=== PATIENT | male | born 1945 | race African-American/Black ===

== ENCOUNTER 2017-11-08 16:47 | Emergency (ER) | payer OTHER, MEDICAID ==
[~2017-11-08 16:47] MED LIST: ASPI81 PO; ATOR40TA PO; CYCL-36 PO; DICL75 PO; ENAL5TAB98 PO; GLYB1TAB51 PO; IBUP800T23 PO; METO50TA PO; NEUR100C PO; PERC5TAB12 PO
[2017-11-08 16:49] VITALS: BP 160/92; PULSE 98; RESP 18; TEMP 98.8; O2SAT 98
--- NOTE | 2017-11-08 17:10 | PD ---
HPI Chief Complaint: GI Complaint Time Seen by Provider: 17:09 Travel History International Travel<30 days: No Contact w/Intl Traveler<30days: No Traveled to known affect area: No History of Present Illness HPI 72-year-old male came to the emergency room with history of nausea and vomiting for past 2-3 days. Patient says he vomits anytime he eats or drinks anything more than 5 minutes. Vomit is clear in color. No history of diarrhea. His last bowel movement was yesterday. Patient has to take laxatives for moving his bowels since he has history of constipation. Today he has not had a bowel movement or pass gas. No previous abdominal surgeries. No known sick contacts. Patient has never had these symptoms in the past that he can recall for which she needed to come to the emergency room. Vital signs are stable. No history of abdominal pain. PFSH Past Medical History Narrative Medical List of his past medical, surgical, social and family history is reviewed from the nursing note Hx Anticoagulant Therapy: Yes Autoimmune Disease: No Blood Disorders: No Anxiety: No Depression: No Cancer: No Cardiovascular Problems: Yes High Cholesterol: Yes Chemotherapy: No Coronary Artery Disease: Yes Diabetes: Yes (type 2) Diminished Hearing: Yes ([place] Endocrine: No Gastrointestinal Disorders: Yes (acid reflux, nausea) Glaucoma: No Genitourinary: No Hepatitis: No Hiatal Hernia: No Hypertension: Yes Immune Disorder: No Kidney Stones: No Musculoskeletal: No Neurologic: No Psychiatric: No Reproductive: No Respiratory: No Radiation Therapy: No Renal Failure: No Sickle Cell Disease: No Thyroid Disease: No Ulcer: Yes Past Surgical History Abdominal Surgery: No AICD: No Cardiac Surgery: Yes (QUAD HEART BYPASS) Coronary Artery Bypass Graft: Yes Ear Surgery: No Endocrine Surgery: No Eye Surgery: No Genitourinary Surgery: Yes (VASECTOMY, CIRCUMCISION) Gynecologic Surgery: No Joint Replacement: No Oral Surgery: No Pacemaker: No Thoracic Surgery: No Other Surgery: Yes Social History Alcohol Use: No Tobacco Use: No Substance Use: No Allergies-Medications (Allergen,Severity, Reaction): Coded Allergies: No Known Allergies (Verified Adverse Reaction, Unknown, 11/08/17) Comments No known drug allergies. Reported Meds & Prescriptions Reported Meds & Active Scripts Active Percocet 5-325 mg (Oxycodone/Acetaminophen) Oxycodone 5/325 Acetaminophen Tab 1 Tab PO Q6H PRN Diclofenac Sodium Dr (Diclofenac Sod) 75 Mg Tab 75 Mg PO BID PRN Percocet 5-325 mg (Oxycodone/Acetaminophen) Oxycodone 5/325 Acetaminophen Tab 1 Tab PO Q6H PRN Ibuprofen 800 Mg Tab 800 Mg PO TID PRN Flexeril (Cyclobenzaprine HCl) 10 Mg Tab 10 Mg PO TID PRN 5 Days Neurontin (Gabapentin) 100 Mg Cap 100 Mg PO TID Reported Flexeril (Cyclobenzaprine HCl) 10 Mg Tab 10 Mg PO TID Atorvastatin (Atorvastatin Calcium) 40 Mg Tab 40 Mg PO HS Aspirin Low Dose (Aspirin) 81 Mg Chew 81 Mg CHEW DAILY Diclofenac Sodium DR (Diclofenac Sodium) 75 Mg Tabdr 75 Mg PO BID Vasotec (Enalapril Maleate) 5 Mg Tab 5 Mg PO DAILY Gabapentin 100 Mg Cap 100 Mg PO TID Glyburide 5 Mg Tab 10 Mg PO BID Take with meals at the same time each day Metoprolol Tartrate 50 Mg Tab 50 Mg PO BID Atorvastatin 40 mg (Atorvastatin Calcium) 40 Mg Tab 40 Mg PO DAILY Diabeta (Glyburide) 5 Mg Tab 10 Mg PO BID Vasotec (Enalapril Maleate) 5 Mg Tab 5 Mg PO DAILY Metoprolol Tartrate 50 mg (Metoprolol Tartrate) 50 Mg Tab 50 Mg PO BID Aspirin 81 Mg Tab 81 Mg PO DAILY Narrative Medication List of his home medications reviewed from the nursing note Review of Systems Except as stated in HPI: all other systems reviewed are Neg Gastrointestinal: Positive: Nausea, Vomiting Physical Exam Narrative GENERAL: Awake, alert, mild distress SKIN: Focused skin assessment warm/dry. HEAD: Atraumatic. Normocephalic. EYES: Pupils equal and round. No scleral icterus. No injection or drainage. ENT: No nasal bleeding or discharge. Mucous membranes pink and moist. NECK: Trachea midline. No JVD. CARDIOVASCULAR: Regular rate and rhythm. No murmur appreciated. RESPIRATORY: No accessory muscle use. Clear to auscultation. Breath sounds equal bilaterally. GASTROINTESTINAL: Abdomen soft, non-tender, nondistended. Hepatic and splenic margins not palpable. MUSCULOSKELETAL: No obvious deformities. No clubbing. No cyanosis. No edema. NEUROLOGICAL: Awake and alert. No obvious cranial nerve deficits. Motor grossly within normal limits. Normal speech. PSYCHIATRIC: Appropriate mood and affect; insight and judgment normal. Data Data Last Documented VS Vital Signs Date Time Temp Pulse Resp B/P (MAP) Pulse Ox O2 Delivery O2 Flow Rate FiO2 11/08/17 19:18 84 18 189/94 (125) 98 Room Air 11/08/17 16:49 98.8 Orders Orders Complete Blood Count With Diff (11/08/17 17:15) Comprehensive Metabolic Panel (11/08/17 17:15) Lipase (11/08/17 17:15) Urinalysis - C+S If Indicated (11/08/17 17:15) Ct Abd/Pel W/O Iv Contrast (11/08/17 17:15) Iv Access Insert/Monitor (11/08/17 17:15) Ecg Monitoring (11/08/17 17:15) Oximetry (11/08/17 17:15) Ondansetron Inj (Zofran Inj) (11/08/17 17:15) Sodium Chlor 0.9% 1000 Ml Inj (Ns 1000 M (11/08/17 17:15) Sodium Chloride 0.9% Flush (Ns Flush) (11/08/17 17:15) Electrocardiogram (11/08/17 ) Potassium Chloride (Kcl) (11/08/17 19:00) Potassium Chlor 20 Meq Premix (Kcl 20 Me (11/08/17 19:00) Metoclopramide Inj (Reglan Inj) (11/08/17 19:00) Ed Discharge Order (11/08/17 19:50) Labs Laboratory Tests Test 11/08/17 17:40 White Blood Count 9.1 TH/MM3 Red Blood Count 4.24 MIL/MM3 Hemoglobin 12.8 GM/DL Hematocrit 37.1 % Mean Corpuscular Volume 87.5 FL Mean Corpuscular Hemoglobin 30.3 PG Mean Corpuscular Hemoglobin Concent 34.6 % Red Cell Distribution Width 13.4 % Platelet Count 234 TH/MM3 Mean Platelet Volume 9.9 FL Neutrophils (%) (Auto) 81.2 % Lymphocytes (%) (Auto) 7.0 % Monocytes (%) (Auto) 10.2 % Eosinophils (%) (Auto) 0.3 % Basophils (%) (Auto) 1.3 % Neutrophils # (Auto) 7.4 TH/MM3 Lymphocytes # (Auto) 0.6 TH/MM3 Monocytes # (Auto) 0.9 TH/MM3 Eosinophils # (Auto) 0.0 TH/MM3 Basophils # (Auto) 0.1 TH/MM3 CBC Comment DIFF FINAL Differential Comment Blood Urea Nitrogen 7 MG/DL Creatinine 0.91 MG/DL Random Glucose 138 MG/DL Total Protein 6.9 GM/DL Albumin 3.3 GM/DL Calcium Level 8.7 MG/DL Alkaline Phosphatase 119 U/L Aspartate Amino Transf (AST/SGOT) 17 U/L Alanine Aminotransferase (ALT/SGPT) 16 U/L Total Bilirubin 1.6 MG/DL Sodium Level 137 MEQ/L Potassium Level 2.9 MEQ/L Chloride Level 99 MEQ/L Carbon Dioxide Level 27.5 MEQ/L Anion Gap 11 MEQ/L Estimat Glomerular Filtration Rate 99 ML/MIN Lipase 273 U/L MDM Medical Decision Making Medical Screen Exam Complete: Yes Emergency Medical Condition: Yes Medical Record Reviewed: Yes Interpretation(s) Twelve-lead EKG was reviewed by me. Normal sinus rhythm, normal axis, U waves noticed most prominently in V3 V4 and V5. Heart rate of 74 bpm. Differential Diagnosis Small bowel obstruction, gastroparesis, viral illness, electrolyte abnormality, dehydration Narrative Course 5:50 PM awaiting for blood test result. Patient has getting IV fluid bolus and IV Zofran. Have ordered a CT scan as well. 6:51 PM blood test result is suggestive of hypokalemia. I have ordered p.o. and IV replacement. CT scan does not show any obstruction or any acute abdomen. There is incidental finding of gallstones. Without any severe abdominal pain I would not entertain this as the reason of his vomiting. Patient could be having gastroparesis. Upon reassessment patient says his nausea feels little better. I have ordered Reglan and patient once symptom- free could be discharged home. Procedures EKG Prior to Arrival: No Diagnosis Primary Impression: Gastroparesis Additional Impressions: Hypokalemia Nausea & vomiting Qualified Codes: R11.2 - Nausea with vomiting, unspecified Referrals: Primary Care Physician Additional Instructions: Take the medication as per the prescription direction. Return to the ER if condition worsens or any other new concerns. Otherwise follow-up with your primary care. Med/Other Pt SpecificInfo: Prescription(s) given Scripts Metoclopramide (Reglan) 5 Mg Tab 5 MG PO TIDAC, #15 TAB 0 Refills Prov: Pino Lombardi MD 11/08/17 Disposition: 01 DISCHARGE HOME Condition: Stable Pino Lombardi MD November 08, 2017 17:10
[2017-11-08] MEDS ORDERED: ONDANSETRON HCL 4 MG/2 ML VIAL IVP ONE (17:15)
[2017-11-08] MEDS ORDERED: SODIUM CHLORIDE 0.9% FLUSH 10 ML FLUSH IV FLUSH PRN (17:15)
[2017-11-08] MEDS ORDERED: ATOR40TA16 PO (17:15)
[2017-11-08] MEDS ORDERED: GLYB5TAB3 PO (17:15)
[2017-11-08] MEDS ORDERED: METO50TA PO (17:15)
[2017-11-08] MEDS ORDERED: SODIUM CHLOR 0.9% 1000 ML INJ 1,000 ML IV SCH (17:15)
[2017-11-08] MEDS ORDERED: ENAL5TAB98 PO (17:15)
[2017-11-08] MEDS ORDERED: DICL75TA PO (17:15)
[2017-11-08] MEDS ORDERED: CYCL10TA PO (17:15)
[2017-11-08] MEDS ORDERED: GABA100C4 PO (17:15)
[2017-11-08] MEDS ORDERED: ASPI81CH6 CHEW (17:15)
[2017-11-08 17:54] LABS: AUTOMATED NEUTROPHIL # 7.4 TH/MM3 (1.8-7.7); BASOPHIL # 0.1 TH/MM3 (0-0.2); BASOPHIL % 1.3 % (0.0-2.0); EOSINOPHIL % 0.3 % (0.0-4.0); HEMATOCRIT 37.1 % (39.0-51.0); HEMOGLOBIN 12.8 GM/DL (13.0-17.0); LYMPHOCYTE # 0.6 TH/MM3 (1.0-4.8); MEAN CELL VOLUME 87.5 FL (80.0-100.0); MEAN CORPUSCULAR HEMOGLOBIN 30.3 PG (27.0-34.0); MEAN CORPUSCULAR HGB CONC 34.6 % (32.0-36.0); MEAN PLATELET VOLUME 9.9 FL (7.0-11.0); MONO % 10.2 % (0.0-8.0); MONOCYTE # 0.9 TH/MM3 (0-0.9); NEUT % 81.2 % (16.0-70.0); PLATELET COUNT 234 TH/MM3 (150-450); RED BLOOD COUNT 4.24 MIL/MM3 (4.50-5.90); RED CELL DISTRIBUTION WIDTH 13.4 % (11.6-17.2); WHITE BLOOD COUNT 9.1 TH/MM3 (4.0-11.0)
[2017-11-08 18:22] LABS: ALBUMIN 3.3 GM/DL (3.4-5.0); ALKALINE PHOSPHATASE 119 U/L (45-117); ALT (GPT) 16 U/L (12-78); AST (GOT) 17 U/L (15-37); BICARBONATE 27.5 MEQ/L (21.0-32.0); BLOOD UREA NITROGEN 7 MG/DL (7-18); CALCIUM 8.7 MG/DL (8.5-10.1); CHLORIDE 99 MEQ/L (98-107); CREATININE 0.91 MG/DL (0.60-1.30); GLOMERULAR FILTRATION RATE 99 ML/MIN (>89); GLUCOSE,RANDOM 138 MG/DL (74-106); SODIUM (NA) 137 MEQ/L (136-145); TOTAL BILIRUBIN ADULT 1.6 MG/DL (0.2-1.0); TOTAL PROTEIN 6.9 GM/DL (6.4-8.2)
--- NOTE | 2017-11-08 18:38 | RADRPT ---
EXAM DATE/TIME: 11/08/2017 18:07 [facility] COMPARISON: No previous studies available for comparison. INDICATIONS : Patient complains of nausea X 3 days. ORAL CONTRAST: No oral contrast ingested. RADIATION DOSE: 6.91 CTDIvol (mGy) MEDICAL HISTORY : Cardiovascular disease. SURGICAL HISTORY : CABG ENCOUNTER: Initial ACUITY: 3 days PAIN SCALE: 3/10 LOCATION: abdomen TECHNIQUE: Volumetric scanning of the abdomen and pelvis was performed. Using automated exposure control and ad justment of the mA and/or kV according to patient size, radiation dose was kept as low as reasonably achievable to obtain optimal diagnostic quality images. DICOM format image data is available electro nically for review and comparison. The lack of IV contrast limits the diagnosis for certain organ pa thology. FINDINGS: LOWER LUNGS: The visualized lower lungs are clear. Small hiatal hernia the GE junction. LIVER: Homogeneous density without lesion. There is no dilation of the biliary tree. A few calcified galls tones in the gallbladder. No inflammatory changes.. SPLEEN: Normal size without lesion. PANCREAS: Within normal limits. KIDNEYS: Normal in size and shape. There is no mass, stone, or hydronephrosis. ADRENAL GLANDS: Within normal limits. VASCULAR: There is no aortic aneurysm. BOWEL/MESENTERY: The stomach, small bowel, and colon demonstrate no acute abnormality. There is no free intraperitone al air or fluid. The appendix is unremarkable. There is some scattered diverticulosis of the descendi ng and sigmoid colon. No definite inflammatory changes are seen. Stool throughout the colon. ABDOMINAL WALL: Within normal limits. RETROPERITONEUM: There is no lymphadenopathy. BLADDER: No wall thickening or mass. REPRODUCTIVE: The prostate gland measures 5.6 x 5.1 cm. INGUINAL: There is no lymphadenopathy or hernia. MUSCULOSKELETAL: Within normal limits for patient age. CONCLUSION: 1. Gallstones in the gallbladder. No biliary tract obstruction. 2. Scattered diverticulosis involving the descending and sigmoid colon without inflammatory changes. 3. Diffuse enlargement of the prostate gland. 4. Small hiatal hernia the GE junction. Alfonzo Nazario MD on November 08, 2017 at 18:33 Board Certified Radiologist. This report was verified electronically.
[2017-11-08] MEDS ORDERED: METOCLOPRAMIDE HCL 10 MG/2 ML VIAL IV PUSH ONE (19:00)
[2017-11-08] MEDS ORDERED: POTASSIUM CHLORIDE 20 MEQ CONTROLLED RELEASE TAB PO ONE (19:00)
[2017-11-08] MEDS ORDERED: POTASSIUM CHLOR 20 MEQ PREMIX 100 ML IV ONE (19:00)
[2017-11-08 19:18] VITALS: BP 189/94; PULSE 84; RESP 18; O2SAT 98
[2017-11-08] MEDS ORDERED: REGL5TAB PO (19:52)
[2017-11-08 20:03] LABS: BILIRUBIN, URINE NEG (NEG); BLOOD, URINE NEG (NEG); GLUCOSE,URINE NEG (NEG); HYALINE CAST, URINE 2 /lpf (RARE); KETONE, URINE 10 mg/dL (NEG); MUCUS URINE MANY /lpf (OCC); NITRITE,URINE NEG (NEG); PH, URINE 5.5 (5.0-8.5); URINE COLOR YELLOW (YELLW/STRAW); URINE LEUKOCYTE ESTERASE NEG (NEG)
--- NOTE | 2017-11-09 17:31 | EKG ---
Date Performed: 11/08/2017 Time Performed: 18:02:56 PTAGE: 72 years EKG: Sinus rhythm WITH SHORT AR INTERVAL WITH OCCASIONAL SUPRAVENTRICULAR PREMATURE COMPLEXES POSSIBLE LEFT ATRIAL ENL ARGEMENT POSSIBLE RIGHT VENTRICULAR CONDUCTION DELAY NONSPECIFIC ST & T-WAVE ABNORMALITY BORDERLINE E CG PREVIOUS TRACING : 08/07/2015 08.30 Since the previous tracing, no significant change noted DOCTOR: Rosa Samaniego Interpretating Date/Time 11/09/2017 17:29:37
== END 2017-11-08 22:04 | disposition home or self-care (01) ==
LOC: NEPD 16:47
DX: E11.43 Type 2 diabetes mellitus with diabetic autonomic (poly)neuropathy (principal); E87.6 Hypokalemia; K31.84 Gastroparesis; K21.9 Gastro-esophageal reflux disease without esophagitis; I10 Essential (primary) hypertension; E78.00 Pure hypercholesterolemia, unspecified; Z79.84 Long term (current) use of oral hypoglycemic drugs; Z79.01 Long term (current) use of anticoagulants
CPT/HCPCS: 74176; 80053; 81001; 83690; 85025; 93005; 96361; 96365; 96366; 96375; 99285; J2405; J2765; J3480; J7030